=== PATIENT | female | born 1935 | race Caucasian/White ===

== ENCOUNTER 2018-02-18 14:22 | Outpatient (CLI) | payer MEDICARE, BC | END 2018-02-18 14:23 | disposition home or self-care (01) | LOC: BICMAMMO 14:22 | PROVIDERS: ATTEND Family Medicine | DX: N63.0 Unspecified lump in unspecified breast (principal); Z80.3 Family history of malignant neoplasm of breast; Z85.3 Personal history of malignant neoplasm of breast | CPT/HCPCS: 77066; G0279 ==

== ENCOUNTER 2018-11-24 10:26 | Observation (INO) | payer MEDICARE, BC ==
[2018-11-24 11:18] LABS: #Lymphocytes 1.9 thou/uL (1.20-3.40); #Monocytes 1.1 thou/uL (0.11-0.59); #Neutrophils 12.6 thou/uL (1.40-6.50); %Basophils 0.2 % (0.0-1.0); %Eosinophils 0.2 % (0.0-10.0); %Lymphocytes 11.9 % (21.0-51.0); %Neutrophils 80.6 % (42.0-75.0); Hemoglobin 15.7 g/dL (12.0-16.0); Mean Corpuscular HGB CONC 33.1 g/dL (32.0-36.0); Mean Corpuscular Hemoglobin 30.7 pg (27.0-31.0); Mean Corpuscular Volume 92.5 fL (78.0-98.0); Mean Platelet Volume 9.4 fL (7.4-10.4); Platelet Count 196 thou/uL (130-400); RBC Distribution Width 11.8 % (11.5-14.5); Red Blood Cell (RBC) Count 5.12 mill/uL (4.20-5.40); White Blood Cell (WBC) Count 15.6 thou/uL (4.8-10.8)
--- NOTE | 2018-11-24 11:28 | RAD ---
XR Chest 1 View Portable HISTORY: right-sided paralysis of extremities COMPARISON: 05/25/2006 FINDINGS: The heart size is normal. The lungs are well expanded without focal areas of consolidation, pneumothorax or pleural effusions. IMPRESSION: No radiographic evidence of acute cardiopulmonary process.
--- NOTE | 2018-11-24 11:37 | CT ---
CT OF HEAD NONCONTRAST: INDICATION: Emergency exam, right side paralysis. FINDINGS: There is mild parenchymal atrophy with compensatory dilatation of the ventricular system. Mild chron ic ischemic disease in the cerebral white matter is present. There is no acute intracranial hemorrha ge, mass effect, or midline shift. The imaged paranasal sinuses are clear. IMPRESSION: No acute intracranial hemorrhage or mass effect. POS: [facility]
[2018-11-24 11:43] LABS: ALT (SGPT) 21 U/L (8-55); AST (SGOT) 23 U/L (5-34); Albumin 4.1 g/dL (3.4-4.8); Alkaline Phosphatase 65 U/L (40-150); Anion Gap 15 mmol/L (10-20); BUN (Urea Nitrogen) 14 mg/dL (9.8-20.1); Bilirubin, Total 0.5 mg/dL (0.2-1.2); Calc. Creatinine Clearance 0 mL/min (70-130); Calcium 9.4 mg/dL (7.8-10.44); Carbon Dioxide 22 mmol/L (23-31); Chloride 106 mmol/L (98-107); Estimated GFR-MDRD 76; Globulin 2.8 g/dL (2.4-3.5); Glucose 148 mg/dL (83-110); Protein, Total 6.9 g/dL (6.0-8.3); Sodium 139 mmol/L (136-145)
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
[2018-11-24] MEDS ORDERED: hydrALAZINE 20 MG/ML VIAL SLOW IVP PRN (15:54)
[2018-11-24] MEDS ORDERED: Acetaminophen 325 MG TAB PO PRN (15:54)
[2018-11-24] MEDS ORDERED: Aspirin 81 mg Enteric Coated Tablet PO SCH (16:00)
[2018-11-24 16:38] VITALS: BMI 30.2
--- NOTE | 2018-11-24 18:30 | MRI ---
MRI BRAIN WITHOUT CONTRAST: 11/24/2018 HISTORY: Transient ischemic attack. COMPARISON: None. TECHNIQUE: Multiplanar, multisequence MRI imaging of the brain is obtained without contrast. FINDINGS: The diffusion-weighted imaging demonstrates no evidence for acute infarction. The axial gradient echo imaging demonstrates no evidence for intracranial hemorrhage. There are multiple subcentimeter foci of increased T2 and FLAIR signal within the periventricular, de ep, and subcortical white matter, evidence of small vessel disease. There is mild diffuse cerebral v olume loss. No midline shift, mass effect, or ventricular enlargement. Arterial flow voids at the axial level of the skull base appears unremarkable on the T2 weighted imag ing. The imaged paranasal sinuses and mastoid air cells are well aerated. IMPRESSION: No acute findings. POS: [facility]
[2018-11-25 05:24] LABS: Cardiac Risk 3.9 (Less than 4.5); Hemoglobin A1c 6.6 % (4.0-6.0)
--- NOTE | 2018-11-25 06:50 | PDOC.FM ---
- Subjective Subjective: Ms. Hazel was sitting up in bed this morning. Has no complaints, awaiting breakfast. She denies any deficits, numbness, tingling. She thinks she had a muscle spasm that caused her initial symptoms. - Objective Vital Signs & Weight: Vital Signs (12 hours) Temp Pulse Resp BP Pulse Ox 11/25/18 04:00 97.2 F L 80 19 171/88 H 95 11/25/18 00:00 98.2 F 94 18 178/80 H 94 L 11/24/18 20:00 98.8 F 77 19 144/76 H 96 Weight Weight 84.912 kg Result Diagrams: 11/24/18 11:08 11/24/18 11:08 Phys Exam - Physical Examination Constitutional: NAD HEENT: moist MMs Respiratory: clear to auscultation bilateral Cardiovascular: RRR, no significant murmur Gastrointestinal: soft, non-tender, positive bowel sounds Musculoskeletal: no edema Neurological: non-focal (CN intact, full sensation, 5/5 strength BLE, BUE) Psychiatric: normal affect Skin: normal turgor (scattered poison [place] rash) Dx/Plan (1) Numbness and tingling Code(s): R20.0 - ANESTHESIA OF SKIN; R20.2 - PARESTHESIA OF SKIN Status: Acute (2) Hypertension Code(s): I10 - ESSENTIAL (PRIMARY) HYPERTENSION Status: Acute (3) Anxiety Code(s): F41.9 - ANXIETY DISORDER, UNSPECIFIED Status: Acute - Plan Plan: 83 yo F with PMH HTN, DM2, anxiety, hx breast cancer presents to ED for resolved tingling and is admitted for observation. TIA rule out - CT neg and symptoms completely resolved in ED - MRI negative - TSH wnl - echo is pending - patient with no focal deficits Leukocytosis - likely 2/2 recent prednisone use for poison [place] DM2 - diet controlled. A1c 6.6. HTN - continue home amlodipine Hx breast cancer (5 years ago) - continue home tamoxifen - has follow up with Dr. Smith q6 months Anxiety - continue home alprazolam Diet: CC Ppx: SCDs PCP: Nikolai Dispo: Likely discharge today Addendum - Attending - Attending Attestation Date/Time: 11/25/18 1047 I personally evaluated the patient and discussed the management with Dr. Oh I agree with the History, Examination, Assessment and Plan documented above with any addition or exceptions noted below - Patient without complaints. Symptoms resolved and have not returned. Afebrile VSS. A/P: 1) Paresthesias- now resolved; MRI negative; echo pending but low suspicion for TIA; polan to d/ c home later today.
[2018-11-25] MEDS ORDERED: Aspirin 81 mg Enteric Coated Tablet PO SCH (09:00)
[2018-11-25] MEDS ORDERED: ALPRAZOLAM 0.5 MG PO SCH (09:00)
[2018-11-25] MEDS ORDERED: TAMOXIFEN CITRATE 20 MG PO SCH (09:00)
[2018-11-25] MEDS ORDERED: Alprazolam [Xanax Xr] 0.5 MG PO SCH (09:00)
[2018-11-25] MEDS ORDERED: Triamcinolone 0.1% Cream 30 GM TUBE TOP SCH (09:00)
[2018-11-25] MEDS ORDERED: predniSONE 20 MG TAB PO SCH ×2 (09:00)
[2018-11-25] MEDS: Triamcinolone 0.1% Cream 30 GM TUBE TOP SCH ×2 (09:15→16:03)
[2018-11-25 12:02] VITALS: BP 177/81
[2018-11-25 12:25] VITALS: TEMP 98.9
[2018-11-25] MEDS ORDERED: Non-Formulary Item 1 EACH (Amlodipine Besylate [Amlodipine Besylate] 5 MG) PO SCH (21:00)
[2018-11-25] MEDS ORDERED: Amlodipine 5 MG TAB PO SCH (21:00)
--- NOTE | 2018-11-27 10:15 | DIS ---
DATE OF ADMISSION: 11/24/2018 DATE OF DISCHARGE: 11/25/2018 RESIDENT: Tamara Oh DO ADMITTING ATTENDING: Yasmani Gillette MD DISCHARGE ATTENDING: Hallie Mccarthy MD CONSULTS: None. PROCEDURES PERFORMED: 1. 11/24/2018, brain CT showed no acute intracranial hemorrhage or mass effect. Mild parenchymal atrophy with compensatory dilatation of the ventricular system , chronic ischemic disease in the cerebral white matter. 2. 11/24/2018, brain MRI showed no acute findings. 3. 11/24/2018, chest x-ray showed no radiographic evidence of acute cardiopulmonary process. 4. 11/25/2018, echocardiogram showed ejection fraction of 60% to 65%, normal left atrium, mild to moderate mitral regurgitation, mild tricuspid regurgitation, no thrombus noted in the cardiac chambers. PRIMARY DIAGNOSES: 1. Anxiety. 2. Leukocytosis. SECONDARY DIAGNOSES: 1. Type 2 diabetes. 2. Hypertension. 3. History of breast cancer. DISCHARGE MEDICATIONS: 1. Amlodipine 5 mg p.o. q.p.m. 2. Xanax 0.5 mg p.o. daily. 3. Triamcinolone cream apply topically t.i.d. 4. Tamoxifen 20 mg p.o. daily. 5. Prednisone 40 mg p.o. b.i.d. DISCONTINUED MEDICATIONS: None. HISTORY OF PRESENT ILLNESS: An 83-year-old female with past medical history of hypertension and anxiety, presented to the emergency department for paresthesias. The patient denied any weakness, facial droop, slurring of speech. The patient noted an atypical sensation of right-sided tingling that began in her shoulder and a sensation of swelling. She then later noted left foot and lower leg tingling. All these symptoms resolved when she was in the emergency department. She had a normal neuro exam. The patient was admitted for TIA workup. Imaging was conducted as above. The patient was also noted to have leukocytosis, which was likely secondary to recent prednisone use for her poison ch[place] rash. Otherwise, TSH of 0.459, triglycerides 68, total cholesterol 166, LDL 109, HDL 43. Hemoglobin A1c 6.6. The patient suspected that her initial presentation was due to muscle cramp in shoulder in addition to anxiety. The patient was discharged in stable condition. May consider discussion, benefits and risks of a statin with her primary care physician. DISPOSITION: Stable. DISCHARGE INSTRUCTIONS: 1. Location: Home. 2. Diet: Diabetic. 3. Activity: As tolerated. 4. Followup: Followup with primary care physician, Dr. Menchaca within one week. Job ID: [id number] MTDD
== END 2018-11-25 16:53 | disposition home or self-care (01) ==
LOC: ERS 10:26 → 2SE 15:47
PROVIDERS: ADMIT Emergency Medicine; ATTEND Emergency Medicine
DX: R20.2 Paresthesia of skin (principal); R20.0 Anesthesia of skin; R53.1 Weakness; F41.9 Anxiety disorder, unspecified; I10 Essential (primary) hypertension; I44.0 Atrioventricular block, first degree; E11.9 Type 2 diabetes mellitus without complications; D72.829 Elevated white blood cell count, unspecified; F32.9 Major depressive disorder, single episode, unspecified; Z85.3 Personal history of malignant neoplasm of breast; Z79.52 Long term (current) use of systemic steroids; Z79.899 Other long term (current) drug therapy
CPT/HCPCS: 70450; 70551; 71045; 80053; 80061; 83036; 84443; 84484; 85025; 93005; 93306; 99285; G0378 ×3; 36415; J7512

== ENCOUNTER 2019-05-11 15:08 | Outpatient (CLI) | payer MEDICARE, BC ==
--- NOTE | 2019-05-11 15:44 | MMO ---
Bilateral MAMMO Bilat Diag [facility]DI+[facility]ISHA. CLINICAL HISTORY: Patient is 83 years old and is seen for diagnostic exam. The patient has the following family history of breast cancer: mother, malignant (generic). The patient has a history of lumpectomy procedure revealed invasive lobular right breast carcinoma in January,; Ultrasound guided core biopsy procedure revealed invasive lobular right breast carcinoma in December, and malignant (generic) in the right breast in 2013. The patient has a history of right Lumpectomy in January, - malignant and right Ultrasound Guided Core Biopsy in December,. VIEWS: The views performed were: bilateral craniocaudal with tomosynthesis; bilateral mediolateral oblique with tomosynthesis; and bilateral mediolateral with tomosynthesis. FILMS COMPARED: The present examination has been compared to prior imaging studies performed at [facility] on 12/20/2014, 12/26/2015, 01/30/2017 and 02/18/2018. This study has been interpreted with the assistance of computer-aided detection. MAMMOGRAM FINDINGS: There are scattered fibroglandular densities. Finding 1: There are stable post operative changes seen in the right breast. Finding 2: There are stable benign appearing calcifications seen in both breasts. There are no suspicious masses, suspicious calcifications, or new areas of architectural distortion. IMPRESSION: THERE IS NO MAMMOGRAPHIC EVIDENCE OF MALIGNANCY. A ROUTINE FOLLOW-UP MAMMOGRAM IN 1 YEAR IS RECOMMENDED. THE RESULTS OF THIS EXAM WERE SENT TO THE PATIENT. ACR BI-RADS Category 2 - Benign finding MAMMOGRAPHY NOTE: 1. A negative mammogram report should not delay a biopsy if a dominant of clinically suspicious mass is present. 2. Approximately 10% to 15% of breast cancers are not detected by mammography. 3. Adenosis and dense breasts may obscure an underlying neoplasm. Reported by: AIMEE GUERRA MD Electonically Signed: [id number]
== END 2019-05-11 15:09 | disposition home or self-care (01) ==
LOC: BICMAMMO 15:08
PROVIDERS: ATTEND Internal Medicine Hematology & Oncology
DX: C50.411 Malignant neoplasm of upper-outer quadrant of right female breast (principal)
CPT/HCPCS: 77066; G0279